=== PATIENT | male | born 1995 | race African-American/Black ===

== ENCOUNTER 2024-04-28 17:28 | Emergency (ER) | payer OTHER ==
[~2024-04-28] VITALS: Ht 172.7 cm; Wt 105.9 kg
[2024-04-28] MEDS ORDERED: SODIUM CHLORIDE 0.9% 1,000 ML IV PRN (17:45)
[2024-04-28 18:04] LABS: BASOPHILS 0.6 % (0-2); EOSINOPHILS 0.6 % (0-6); HEMATOCRIT 45.1 % (35.0-50.0); HEMOGLOBIN 15.4 g/dL (12.0-18.0); LYMPHOCYTES 34.9 % (24-44); MCH 29.4 (27-36); MCHC 34.1 g/dl (30-36); MONOCYTES 7.2 % (0-12); NEUTROPHILS 56.7 % (39-80); PLATELET COUNT 196 K/uL (140-440); RBC 5.24 M/ul (4.3-5.7); RDW 12.9 (10.5-15.0)
[2024-04-28 18:16] LABS: INR 1.06 (0.80-1.30); PROTIME 13.1 Sec (11.2-14.2)
[2024-04-28 18:22] LABS: ALBUMIN 4.3 g/dL (3.4-5.0); ALBUMIN/GLOBULIN RATIO 1.23 (1.1-2.4); ALCOHOL, MEDICAL <3 ng/dL (<3); ALKALINE PHOSPHATASE 96 U/L (46-116); ALT (SGPT) 61 U/L (14-59); ANION GAP 13.9 (7-21); AST (SGOT) 25 U/L (15-37); BILIRUBIN, TOTAL 0.4 ng/dL (0.2-1.0); BUN/CREATININE RATIO 8.18 (6.0-28.6); CARBON DIOXIDE 27 mmol/L (21-32); CHLORIDE 101 mmol/L (98-107); CREATINE KINASE 272 U/L (39-308); CREATININE, SERUM 1.71 mg/dL (0.70-1.30); GLOMERULAR FILTRATION RATE,EST 56 mL/min (>60); POTASSIUM 3.9 mmol/L (3.5-5.1); PROTEIN, TOTAL 7.8 g/dL (6.4-8.2); UREA NITROGEN 14 mg/dL (7-18)
[2024-04-28 18:33] LABS: CALCIUM 9.2 mg/dL (8.5-10.1)
[2024-04-28 18:50] LABS: PARTIAL THROMBOPLASTIN TIME 24.3 Sec (22.9-41.3)
[2024-04-28] MEDS ORDERED: levETIRAcetam 500 MG/5 ML VIAL IV ONE (19:30)
[2024-04-28 20:41] LABS: BILIRUBIN, URINE NEGATIVE (negative); BLOOD/HGB, URINE NEGATIVE (Negative); KETONE, URINE NEGATIVE (Negative); LEUK ESTERASE, URINE NEGATIVE (negative); NITRITE, URINE NEGATIVE (negative)
[2024-04-28 20:54] LABS: AMPHETAMINES, URINE NEGATIVE (NEGATIVE); BARBITURATES, URINE NEGATIVE (NEGATIVE); BENZODIAZEPINE, URINE NEGATIVE (NEGATIVE); BUPRENORPHINE, URINE NEGATIVE (NEGATIVE); CANNABINOID, URINE NEGATIVE (NEGATIVE); COCAINE, URINE NEGATIVE (NEGATIVE); ECSTASY, URINE NEGATIVE (NEGATIVE); FENTANYL, URINE NEGATIVE (NEGATIVE); METHADONE, URINE NEGATIVE (NEGATIVE); OPIATES, URINE NEGATIVE (NEGATIVE); OXYCODONE, URINE NEGATIVE (NEGATIVE); PHENCYCLIDINE, URINE NEGATIVE (NEGATIVE)
[2024-04-28 21:40] VITALS: BP 127/83
--- NOTE | 2024-04-29 22:04 | EKG ---
[facility] [address] [place] [address] Signed Normal sinus rhythm Normal ECG No previous ECGs available Confirmed by Sea Hwang MD () on 04/29/2024 10:03:55 PM Electronically Signed By: SEA HWANG MD 04/29/242203 PATIENT NAME: SWAPNIL NICOLE Electrocardiogram DATE OF : [birth year] PHYSICIAN: SEA HWANG MD REPORT #: [id number] REPORT IS CONFIDENTIAL AND NOT TO BE RELEASED WITHOUT AUTHORIZATION
== END 2024-04-28 21:40 | disposition other institution, planned readmission (95) ==
LOC: ED 17:28
PROVIDERS: Emergency Medicine
DX: S06.5X9A Traumatic subdural hemorrhage with loss of consciousness of unspecified duration, initial encounter (principal); W06.XXXA Fall from bed, initial encounter; Y92.143 Cell of prison as the place of occurrence of the external cause
CPT/HCPCS: 36415; 70450; 72125; 80053; 80307; 81003; 82553; 83605; 84484; 85025; 85610; 85730; 93005; 93010; 96374; 99285-25; G0480; J1953; J7030

== ENCOUNTER 2024-05-02 16:03 | Emergency (ER) | payer OTHER ==
[~2024-05-02] VITALS: Ht 172.7 cm; Wt 106.1 kg
--- OUTSIDE RECORDS SUMMARY | 2024-05-02 16:10 | XMS ---
PreManage Notification: SWAPNIL NICOLE Security [employer] Events No recent Security Events currently on file CRITERIA MET - [facility] [place] - 2 Visits in 30 Days CARE PROVIDERS There are no care providers on record at this time. Amarjit has no Care Guidelines for this patient. [facility]12 MO.) [facility] NOTE: Visits indicate total known visits. ED/C VISIT TRACKING (12 MO.) [facility]24 16[facility] COMPLAINT: - VOMITING/FALL 04/28/2024 17:[address] [facility] TYPE: Emergency COMPLAINT: - AMS DIAGNOSES: - Altered mental status, unspecified - Cell of alf as the place of occurrence of the external cause - Fall from bed, initial encounter - Traumatic subdural hemorrhage with loss of consciousness of unspecified duration, initial encounter INPATIENT VISIT TRACKING (12 MO.) No inpatient visits to display in this time frame [email or web address]
[2024-05-02] MEDS ORDERED: ondansetron HCL 4 MG/2 ML VIAL IV ONE (16:15)
[2024-05-02] MEDS ORDERED: SODIUM CHLORIDE 0.9% 1,000 ML IV PRN (16:15)
[2024-05-02] MEDS ORDERED: VENTOLIN HFA18 GM INH (16:19)
[2024-05-02] MEDS ORDERED: FLUTICASONE-SA1 EAC4 INH (16:19)
[2024-05-02] MEDS ORDERED: MELATONIN5 M2 PO (16:20)
[2024-05-02] MEDS ORDERED: SLEEPING50 MG PO (16:20)
[2024-05-02 16:44] LABS: BASOPHILS 0.4 % (0-2); EOSINOPHILS 2.9 % (0-6); HEMATOCRIT 46.7 % (35.0-50.0); HEMOGLOBIN 15.9 g/dL (12.0-18.0); LYMPHOCYTES 39.9 % (24-44); MCH 29.5 (27-36); MCV 86.9 fl (81-99); MONOCYTES 7.9 % (0-12); NEUTROPHILS 48.9 % (39-80); PLATELET COUNT 237 K/uL (140-440); RBC 5.37 M/ul (4.3-5.7); RDW 13.1 (10.5-15.0)
[2024-05-02 16:59] LABS: ALBUMIN 4.3 g/dL (3.4-5.0); ALBUMIN/GLOBULIN RATIO 1.16 (1.1-2.4); ANION GAP 13.2 (7-21); BILIRUBIN, TOTAL 0.3 ng/dL (0.2-1.0); BUN/CREATININE RATIO 11.36 (6.0-28.6); CALCIUM 9.5 mg/dL (8.5-10.1); CREATININE, SERUM 1.32 mg/dL (0.70-1.30); POTASSIUM 4.2 mmol/L (3.5-5.1)
[2024-05-02] MEDS ORDERED: ONDANSETRON ODT8 MG PO (17:17)
[2024-05-02 17:45] VITALS: BP 134/84
== END 2024-05-02 17:50 | disposition other institution, planned readmission (95) ==
LOC: ED 16:03
PROVIDERS: Emergency Medicine
DX: S06.0XAA Concussion with loss of consciousness status unknown, initial encounter (principal); S06.5XAA Traumatic subdural hemorrhage with loss of consciousness status unknown, initial encounter; X58.XXXA Exposure to other specified factors, initial encounter; Z79.899 Other long term (current) drug therapy
CPT/HCPCS: 36415; 70450; 80053; 85025; 96361; 96374; 99284-25; J2405; J7030